=== PATIENT | female | born 1965 | race American Indian/Alaskan Native ===

== ENCOUNTER 2017-01-20 17:48 | Emergency (ER) | payer BC ==
[2017-01-20] MEDS ORDERED: PERCOCET 5/325 PO ONE (21:49)
--- NOTE | 2017-01-20 21:49 | Emergency Department Report ---
ED Lower Extremity HPI - General Chief Complaint: Extremity Injury, Lower Stated Complaint: LEFT KNEE PAIN/SWELLING Time Seen by Provider: 01/20/17 21:12 Source: patient Mode of arrival: Ambulatory Limitations: No Limitations - History of Present Illness Initial Comments: Patient here she reports that she has swelling and pain to her left knee 5 weeks. She denies any injury. She says she's been taking ibuprofen and Tylenol without any relief. She has a history of arthritis. Denies any numbness or tingling to extremity. Pain is throbbing and located to the front of her knee. Denies any redness to knee, fever or chills. MD Complaint: other (left knee pain) Onset/Timin -: week(s) Injury: Knee: Left (pain and swelling) Type of Injury: unknown Place: home Severity: moderate Severity scale (0 -10): 6 Improves With: NSAID Worsens With: weight bearing, movement, palpation Context: other (none) Associated Symptoms: swelling, ambulatory. denies: snap/pop sensation, numbness , tingling, unable to bear weight, able to partially bear weight Treatments Prior to Arrival: NSAIDS - Related Data Home Medications Medication Instructions Recorded Confirmed Last Taken Aspirin [Aspirin BABY CHEW TAB] 81 mg PO QDAY 07/01/15 07/01/15 06/30/15 AtorvaSTATin [Lipitor] 40 mg PO DAILY 07/01/15 07/01/15 06/30/15 Butalb/Acetaminophen/Caffeine 1 tab PO Q4H PRN 07/01/15 07/01/15 07/01/15 [Fioricet 50-300-40 mg CAP] Previous Rx's Medication Instructions Recorded Last Taken Type Dihydroergotamine Mesylate 1 ml NS Q1HR PRN #1 spray.pump 07/01/15 Unknown Rx [Migranal] LORazepam [Ativan] 0.5 mg PO Q6H PRN #14 tablet 07/01/15 Unknown Rx Ondansetron [Zofran ODT TAB] 8 mg PO Q12HR #20 tab.rapdis 07/01/15 Unknown Rx traMADol [Ultram] 50 mg PO Q6HR PRN #20 tablet 01/20/17 Unknown Rx Allergies Allergy/AdvReac Type Severity Reaction Status Date / Time codeine Allergy Itching Verified 01/20/17 18:28 levetiracetam [From Keppra] Allergy Unknown Verified 01/20/17 18:28 metoclopramide HCl Allergy Unknown Verified 01/20/17 18:28 [From Reglan] prochlorperazine Allergy Unknown Verified 01/20/17 18:28 [From Compazine] prochlorperazine edisylate Allergy Unknown Verified 01/20/17 18:28 [From Compazine] prochlorperazine maleate Allergy Unknown Verified 01/20/17 18:28 [From Compazine] sulfamethoxazole Allergy Rash Verified 01/20/17 18:28 [From Bactrim] trimethoprim [From Bactrim] Allergy Rash Verified 01/20/17 18:28 pecan nut AdvReac Itching Verified 01/20/17 18:28 ED Review of Systems ROS: Stated complaint: LEFT KNEE PAIN/SWELLING Other details as noted in HPI Comment: All other systems reviewed and negative Constitutional: denies: chills, fever Respiratory: no symptoms reported Cardiovascular: denies: chest pain, palpitations, edema, syncope Gastrointestinal: denies: nausea, vomiting Musculoskeletal: joint swelling, arthralgia. denies: back pain Skin: denies: rash Neurological: denies: headache, weakness, numbness, paresthesias, confusion, abnormal gait, vertigo ED Past Medical Hx - Past Medical History Previous Medical History?: Yes Hx Arthritis: Yes (OSTEOARTHRITIS) Hx Headaches / Migraines: Yes Hx Seizures: Yes Additional medical history: Aneurysm-Left middle cerebral artery 2010. High cholesterol - Surgical History Past Surgical History?: Yes Hx Cholecystectomy: Yes Hx Breast Surgery: Yes (CLIP RIGHT BREAST) Additional Surgical History: Aneurysm repair-2010. HYSTERECTOMY. BONE SPURS REMOVED BOTH SHOULDERS. A & P REPAIR AND REVISION - Family History Family history: diabetes, hypertension - Social History Smoking Status: Never Smoker Substance Use Type: None - Medications Home Medications: Home Medications Medication Instructions Recorded Confirmed Last Taken Type Aspirin [Aspirin BABY CHEW TAB] 81 mg PO QDAY 07/01/15 07/01/15 06/30/15 History AtorvaSTATin [Lipitor] 40 mg PO DAILY 07/01/15 07/01/15 06/30/15 History Butalb/Acetaminophen/Caffeine 1 tab PO Q4H PRN 07/01/15 07/01/15 07/01/15 History [Fioricet 50-300-40 mg CAP] Dihydroergotamine Mesylate 1 ml NS Q1HR PRN #1 spray.pump 07/01/15 Unknown Rx [Migranal] LORazepam [Ativan] 0.5 mg PO Q6H PRN #14 tablet 07/01/15 Unknown Rx Ondansetron [Zofran ODT TAB] 8 mg PO Q12HR #20 tab.rapdis 07/01/15 Unknown Rx traMADol [Ultram] 50 mg PO Q6HR PRN #20 tablet 01/20/17 Unknown Rx ED Physical Exam - General Limitations: No Limitations General appearance: alert, in no apparent distress - Head Head exam: Present: atraumatic, normocephalic, normal inspection - Eye Eye exam: Present: normal appearance, PERRL, EOMI Pupils: Present: normal accommodation - Neck Neck exam: Present: normal inspection, full ROM. Absent: tenderness, lymphadenopathy - Respiratory Respiratory exam: Present: normal lung sounds bilaterally. Absent: respiratory distress, chest wall tenderness - Cardiovascular Cardiovascular Exam: Present: regular rate, normal rhythm, normal heart sounds - Expanded Lower Extremity Exam Left Hip exam: Present: normal inspection, full ROM, pelvic stability. Absent: tenderness, swelling, abrasion, laceration, ecchymosis, deformity, crepidus, dislocation, erythema, external rotation, internal rotation, shortening Upper Leg exam: Present: normal inspection, full ROM. Absent: tenderness, swelling, abrasion, laceration, ecchymosis, deformity, crepidus, dislocation, erythema Knee exam: Present: full ROM (Full Range of motion to her left knee she is able to flex and extend but she said it's painful.), tenderness (anterior knee), full knee extension. Absent: swelling, abrasion, laceration, ecchymosis, deformity, crepidus, dislocation, erythema, effusion, pain w/ pronation/ supination, posterior draw sign, pain/laxity with valgus, pain/laxity with varus Lower Leg exam: Present: normal inspection, full ROM. Absent: tenderness, swelling, abrasion, laceration, ecchymosis, deformity, crepidus, dislocation, erythema, palpable cord, Ej's sign Ankle exam: Present: normal inspection, full ROM. Absent: tenderness, swelling , abrasion, laceration, ecchymosis, deformity, crepidus, dislocation, erythema, anterior draw sign Foot/Toe exam: Present: normal inspection, full ROM. Absent: tenderness, swelling, abrasion, laceration, ecchymosis, deformity, crepidus, dislocation, erythema, amputation, puncture wound, foreign body, calcaneal tenderness, tenderness at base of 5th metatarsal, nail avulsion, subungual hematoma Neuro vascular tendon exam: Present: no vascular compromise. Absent: pulse deficit, abnormal cap refill, motor deficit, sensory deficit, tendon deficit, extremity cold to touch, pallor, abnormal 2-point discrimination, decreased fine /light touch, foot drop, peroneal nerve deficit, significant pain with passive ROM of distal joint Gait: Positive: observed and limited by pain - Back Exam Back exam: Present: normal inspection, full ROM. Absent: tenderness, CVA tenderness (R), CVA tenderness (L), muscle spasm, paraspinal tenderness, vertebral tenderness, rash noted - Neurological Exam Neurological exam: Present: alert, oriented X3, normal gait, reflexes normal. Absent: motor sensory deficit - Psychiatric Psychiatric exam: Present: normal affect, normal mood - Skin Skin exam: Present: warm, dry, intact, normal color. Absent: rash ED Course Vital Signs 01/20/17 18:29 Temperature 98.8 F Pulse Rate 80 Respiratory 18 Rate Blood Pressure 138/67 O2 Sat by Pulse 100 Oximetry - Reevaluation(s) Reevaluation #1: 01/20/17 23:20 Finger and Percocet 5/325 2 tablets by mouth and Benadryl 50 mg by mouth for itching. Pain is down to 3 out of 10. ED Lower Extremity MDM - Radiology Data Radiology results: report reviewed X-ray of left knee revealed no fracture or dislocation, normal joints, no effusion. Large adipose tissue - Medical Decision Making ED course: patient that her x-ray was negative and radiologist reported that she has a large amount of adipose tissue around her knee and she will need to follow-up with orthopedic doctor regarding knee pain pain is not better in 3-5 days. I discussed with her that I'll put her on Ultram to go home and she does not need an immobilizer because her knee does not have any anomaly. Patient agrees with discharge plan and discharged home with her family with prescription for Ultram. Critical care attestation.: If time is entered above; I have spent that time in minutes in the direct care of this critically ill patient, excluding procedure time. ED Disposition Clinical Impression: Arthralgia of left knee, Obesity, Class III, BMI 40-49.9 (morbid obesity) Disposition: DISCHARGED TO HOME OR SELFCARE Is pt being admited?: No Does the pt Need Aspirin: No Condition: Stable Instructions: Arthralgia (ED), Knee Pain (ED), Knee Exercises (GEN) Additional Instructions: Following discharge instruction on exercises. Take Ultram for knee pain this can cause drowsiness. Please do not drive or operate heavy machinery. Orthopedic doctor if he is not better and 3-5 days. Prescriptions: traMADol [Ultram] 50 mg PO Q6HR PRN #20 tablet PRN Reason: Pain Referrals: DC TRAORE MD, PHD [Primary Care Provider] - 3-5 Days GLADYS OLIVER MD [Staff Physician] - 3-5 Days Forms: Work/School Release Form(ED)
[2017-01-20] MEDS ORDERED: BENADRYL PO ONE (21:50)
--- NOTE | 2017-01-20 23:04 | XRay Report ---
FINAL REPORT PROCEDURE: Left knee. TECHNIQUE: Three views. HISTORY: Left knee pain and swelling. COMPARISON: No prior studies are available for comparison. FINDINGS: The bones appear intact without fracture or dislocation. The joint spaces appear normal. The soft tissues are obese. There is no evidence of a knee effusion. IMPRESSION: Obesity. Normal bones.
[2017-01-20 23:49] VITALS: BP 115/73
== END 2017-01-20 23:50 | disposition home or self-care (01) ==
LOC: ED 17:48
DX: E66.8 Other obesity (principal); M25.562 Pain in left knee; Z68.42 Body mass index [BMI] 45.0-49.9, adult; M19.90 Unspecified osteoarthritis, unspecified site; G43.909 Migraine, unspecified, not intractable, without status migrainosus; E78.00 Pure hypercholesterolemia, unspecified; Z79.82 Long term (current) use of aspirin; Z88.5 Allergy status to narcotic agent; Z88.2 Allergy status to sulfonamides; Z88.8 Allergy status to other drugs, medicaments and biological substances; Z91.010 Allergy to peanuts